=== PATIENT | female | born 1935 | race Two or more races ===

== ENCOUNTER 2023-06-24 00:24 | Inpatient (IN) | payer OTHER ==
[~2023-06-24] VITALS: Ht 167.6 cm; Wt 54.4 kg
[~2023-06-24 00:24] MED LIST: BETAXOLOL HCL10 MG; DOXAZOSIN MESYLA4 MG; LISINOPRIL20 MG
--- NOTE | 2023-06-24 00:32 | NUR ---
SE RECIBE PTE FEMINIA DE 87ANOS ALERTA Y ORIENTADA X3 QUIEN AL MOMENTO REFIERE DOLOR EN CADERA IZQ. PTE REFIERE AKUA SOSTENIDO CAIDA EN HOGAR. SE MONITOREAN S/V Y SE UBICA EN CAMA 10 .
--- NOTE | 2023-06-24 01:35 | NUR ---
PTE EVALUADO POR QUIEN ORDENA TX MED A PTE SE REALIZAN ORDENES BAJO MEDIDAS ACEPTICAS. PTE PEND A RESULTADOS DE LAB Y REALIZACION DE PLACAS.
--- NOTE | 2023-06-24 07:39 | NUR ---
SE RECIBE PTE ALERTA Y ORIENTADA X3 JUNTO A FAMILIAR LA MISMA SE ENCUENTRA EN TYREE CON BARANDAS ELEVADAS, SE OBSERVA CON CANALIZACION EN BRAZO RADHA #22 UN R/L @ 60ML/HR Y KCL 20MEQ @ 5ML/HR. PACIENTE ESTABLE, SE REALIZAN VITALES Y SE DOCUMENTAN EN SISTEMA.
[2023-06-25] MEDS ORDERED: PERCOCET 5-3251 EACH PO (07:32)
[2023-06-25] MEDS ORDERED: DUI500 PO (07:32)
[2023-06-25] MEDS ORDERED: ELIQUIS2.5 MG PO (07:32)
[2023-06-25] MEDS ORDERED: NORVASC5 MG PO (12:34)
[2023-06-27] MEDS ORDERED: ELIQUIS2.5 MG PO (15:15)
[2023-06-27] MEDS ORDERED: TRAM1TAB98 PO (15:15)
== END 2023-06-27 15:54 | disposition home or self-care (01) | DRG 522 ==
LOC: ER 00:24 → SEC-K 12:51 → O/R 12:51 → SURG 22:19
PROVIDERS: Orthopaedic Surgery; ADMIT Specialist; ATTEND Specialist
PROC: 0MBM0ZZ Excision of Left Hip Bursa and Ligament, Open Approach (ICD-10-PCS; 2023-06-24)
PROC: 0SRS0JZ Replacement of Left Hip Joint, Femoral Surface with Synthetic Substitute, Open Approach (ICD-10-PCS; principal; 2023-06-24 17:00)
DX: S72.002A Fracture of unspecified part of neck of left femur, initial encounter for closed fracture (principal); M80.052A Age-related osteoporosis with current pathological fracture, left femur, initial encounter for fracture; D62 Acute posthemorrhagic anemia; M16.12 Unilateral primary osteoarthritis, left hip; I10 Essential (primary) hypertension; E03.9 Hypothyroidism, unspecified; Z96.642 Presence of left artificial hip joint; Z20.822 Contact with and (suspected) exposure to COVID-19; W19.XXXA Unspecified fall, initial encounter; Y93.9 Activity, unspecified; Y92.9 Unspecified place or not applicable